=== PATIENT | male | born 1990 | race Caucasian/White ===

== ENCOUNTER 2017-10-06 21:26 | Emergency (ER) | payer SELFPAY ==
[~2017-10-06] VITALS: Ht 177.8 cm; Wt 69.2 kg
[2017-10-06 21:52] VITALS: Ht 177.8 cm; Wt 69.2 kg
== END 2017-10-06 23:26 | disposition left against medical advice (07) ==
LOC: FTE 21:26
DX: Z53.21 Procedure and treatment not carried out due to patient leaving prior to being seen by health care provider (principal)